=== PATIENT | male | born 1945 | race Caucasian/White ===

== ENCOUNTER 2019-08-05 18:48 | Emergency (ER) | payer MEDICARE, SELFPAY ==
--- NOTE | ~2019-08-05 | CT_ITS ---
EXAMINATION: CT abdomen pelvis w con INDICATION: Generalized abdominal pain TECHNIQUE: Computed tomographic images of the abdomen and pelvis were obtained after the administrati on of 100 cc of Omnipaque 350 intravenous contrast. The dose-length product (DLP) was 508.10 mGy-cm. Automated exposure control and iterative reconstruction technique were employed. COMPARISON: 01/01/2019 FINDINGS: There is chronic interstitial lung disease of the visualized lung bases and a pattern of us ual interstitial pneumonia. Small pleural effusions are present, right greater than left. There is a left ninth rib fracture with nonunion. The heart size is normal. The liver, spleen, pancreas, gallbla dder, and adrenal glands are normal. There is a 2 mm nonobstructing stone of the right kidney lower p ole. A 4 mm nonobstructing stone is present in the left kidney lower pole. There is calcified atheros clerosis of the aorta and many of the other arteries. A retroaortic left renal vein is noted. No path ologically enlarged abdominal or pelvic lymph nodes are identified. There is no free intraperitoneal gas or evidence of bowel obstruction. A moderate volume of colonic stool is present. There is chronic soft tissue attenuation near the right inguinal canal, likely related to prior hernia repair. Compre ssion fractures of the L3 and L4 vertebral bodies are new since the comparison examination. IMPRESSION: 1. Constipation. 2. Chronic interstitial lung disease of the visualized lung bases in a pattern of usual interstitial pneumonia. 3. Bilateral nonobstructing nephrolithiasis. 4. Compression fractures of the L3 and L4 vertebral bodies, new since the comparison examination. Reviewed, dictated and finalized at location A. IMPRESSION: 1. Constipation. 2. Chronic interstitial lung disease of the visualized lung bases in a pattern of usual interstitial pneumonia. 3. Bilateral nonobstructing nephrolithiasis. 4. Compression fractures of the L3 and L4 vertebral bodies, new since the hillary rison examination.
[2019-08-05 18:46] VITALS: BP 136/79; PULSE 77; RESP 14; TEMP 37.1; O2SAT 94
[2019-08-05 19:14] LABS: Basophils Absolute Auto 0.1 K/mm3 (0.0-0.1); Eosinophils Absolute Auto 0.2 K/mm3 (0-0.3); Eosinophils Percent Auto 1.9 % (0-4.4); Hematocrit 32.7 % (42.0-52.0); Hemoglobin 10.5 g/dL (14.0-18.0); Immature Granulocyte Percent A 1.1 % (0-0.5); Lymphocytes Absolute Auto 0.67 K/mm3 (0.9-3.2); Lymphocytes Percent Auto 7.2 % (18.3-44.2); Mean Corpuscular HGB Conc 32.1 g/dl (32-36); Mean Corpuscular Hemoglobin 30.8 pg (26-34); Mean Corpuscular Volume 95.9 fl (80-100); Monocytes Absolute Auto 0.8 K/mm3 (0.1-0.6); Monocytes Percent Auto 8.3 % (2.6-8.5); Neutrophils Absolute Auto 7.5 K/mm3 (1.3-6.7); Neutrophils Percent Auto 80.5 % (45.5-73.1); Platelet Count Result 191 k/mm3 (150-375); Red Blood Count 3.41 M/mm3 (4.6-6.20); White Blood Count 9.4 K/mm3 (4.5-10.0)
--- NOTE | 2019-08-05 19:19 | ED.ABDPAIN ---
HPI - Abdominal Pain General Chief Complaint: Abdominal Pain Stated Complaint: abd pain Time Seen by Provider: 08/05/19 19:02 Source: RN notes reviewed History of Present Illness HPI narrative: Patient presents emergency department from [facility] via EMS for abdominal pain. Patient was complaining of right lower quadrant maritza pain prior to arrival to the emergency department. States the pain began approximately 30 minutes ago. The patient arrived in the emergency department he had a large bowel movement states the pain is currently resolved. Denies any fevers or chills chest pain or shortness of breath. States he is chronically on 2 to 3 L nasal cannula secondary to COPD. The patient does note that he had some earlier nausea that is now resolved Related Data Home Medications Medication Instructions Recorded Confirmed Symbicort 2 puff INHALATION Q12H PRN 01/01/19 01/25/19 Tumeric 500 mg PO DAILY 01/01/19 01/25/19 ascorbic acid (vitamin C) 2 g PO DAILY 01/01/19 01/25/19 aspirin 81 mg PO DAILY 01/01/19 01/25/19 bupropion HCl 150 mg PO QAM 01/01/19 01/25/19 cholecalciferol (vitamin D3) 1,000 unit PO DAILY 01/01/19 01/25/19 [Vitamin D3] clonazepam 0.5 mg PO DAILY PRN 01/01/19 01/25/19 cyanocobalamin (vitamin B-12) 1,000 mcg PO DAILY 01/01/19 01/25/19 [Vitamin B-12] escitalopram oxalate 20 mg PO DAILY 01/01/19 01/25/19 ferrous sulfate 650 mg PO DAILY 01/01/19 01/25/19 gabapentin 300 mg PO TID 01/01/19 01/25/19 ipratropium-albuterol 3 ml INHALATION Q12H PRN 01/01/19 01/25/19 megestrol 1,600 mg PO DAILY 01/01/19 01/25/19 melatonin 5 mg PO HS 01/01/19 01/25/19 pantoprazole 40 mg PO QAM 01/01/19 01/25/19 potassium gluconate 595 mg PO DAILY 01/01/19 01/25/19 pravastatin 80 mg PO HS 01/01/19 01/25/19 prochlorperazine maleate 10 mg PO Q6H PRN 01/01/19 01/25/19 Florajen 460 mg PO DAILY 01/25/19 01/25/19 Allergies Allergy/AdvReac Type Severity Reaction Status Date / Time Penicillins Allergy Unknown Rash Verified 01/24/19 23:49 Sulfa (Sulfonamide Allergy Unknown Rash Verified 01/24/19 23:49 Antibiotics) Review of Systems Review of Systems: Narrative: Gen.: Denies fevers or chills ENT: Denies congestion Respiratory: Denies shortness of breath or cough CV: Denies chest pain or palpitations GI: See HPI denies burning, urgency, frequency or hematuria Musculoskeletal: Denies back pain or muscle pain Neuro: Denies numbness, tingling, weakness or focal weakness Skin: Denies rash Except as documented, all other systems reviewed and negative [facility] Past Medical History Medical History Anemia Anxiety CAD (coronary artery disease) Chronic kidney disease Chronic respiratory failure COPD (chronic obstructive pulmonary disease) Depression with anxiety HTN (hypertension) Hyperlipidemia Inguinal hernia right side Lung cancer small cell lung cancer On home oxygen therapy 2L NC Peripheral artery disease Peripheral neuropathy Pneumonia Port-A-Cath in place Restless leg syndrome Sepsis Thoracic compression fracture Type II diabetes mellitus Ureteral stone UTI (urinary tract infection) Vitamin D deficiency Surgical History Surgical History H/O angioplasty H/O inguinal hernia repair Hx of tonsillectomy Social History Social History Social History: Patient resides at [facility] in [facility] Care unit as an Assisted Living resident. He does not have a PCP at the moment. He wishes to be listed as a full code. He lists his stepson/friend Vamshi Pinto his POA Years smoked: 51 Smoking status: Light tobacco smoker Tobacco type: cigarettes Second hand tobacco smoke exposure: No Smoking end date: 12/09/18 Additional smoking assessment comments: Pt notes that he smokes sometimes if he can get away with it. He has not Alcohol intake: nev
[2019-08-05 19:26] LABS: Alanine Aminotransferase 12 U/L (4-50); Alkaline Phosphatase 53 U/L (38-126); Aspartate Amino Transferase 20 U/L (17-59); Bilirubin,Total 0.4 mg/dL (0.2-1.3); Blood Urea Nitrogen 31 mg/dL (9-20); Calcium 8.7 mg/dL (8.4-10.2); Carbon Dioxide 21 mmol/L (22-30); Chloride 109 mmol/L (98-107); Estimated CRCL calculation 38 ml/min; Estimated Glomerular Filt Rate 50; Glucose 131 mg/dL (75-110); Lipase 57 U/L (23-300); Potassium 3.8 mmol/L (3.4-5.0); Sodium 140 mmol/L (137-145)
[2019-08-05 19:30] LABS: Estimated CRCL calculation 38 ml/min; Estimated Glomerular Filt Rate 50
[2019-08-05 21:09] VITALS: BP 128/69; PULSE 71; RESP 16; O2SAT 97
[2019-08-05 21:09] LABS: Add Urine Microscopic? YES; Appearance Urine Clear (Clear); Bacteria Urine Trace /hpf; Bilirubin Urine Negative (Negative); Blood Urine Negative (Negative); Budding Yeast Urine Present /hpf; Color Urine Yellow (Yellow); Glucose Urine UA Negative (Negative); Ketones Urine Negative (Negative); Leukocyte Esterase Ur 1+ LEU/UL (Negative); Mucus Urine Few /lpf; Nitrate Urine Negative (Negative); Protein Urine 1+ mg/dL (Negative); RBC Urine 21-50 /hpf (0-2); Specific Grav Ur 1.055 (1.001-1.035); Squamous Epithelial Cell Urine Occasional /hpf (Few)
[2019-08-05] MEDS: CIPROFLOXACIN 500 MG TAB PO (22:12)
[2019-08-06 00:24] VITALS: BP 124/65; PULSE 62; RESP 16; TEMP 36.3; O2SAT 96
== END 2019-08-06 00:25 ==
PROVIDERS: Emergency Provider Emergency Medicine
DX: N39.0 Urinary tract infection, site not specified (principal); D64.9 Anemia, unspecified; I25.10 Atherosclerotic heart disease of native coronary artery without angina pectoris; J96.10 Chronic respiratory failure, unspecified whether with hypoxia or hypercapnia; J44.9 Chronic obstructive pulmonary disease, unspecified; F41.8 Other specified anxiety disorders; E11.22 Type 2 diabetes mellitus with diabetic chronic kidney disease; I12.9 Hypertensive chronic kidney disease with stage 1 through stage 4 chronic kidney disease, or unspecified chronic kidney disease; N18.9 Chronic kidney disease, unspecified; Z85.118 Personal history of other malignant neoplasm of bronchus and lung; Z99.81 Dependence on supplemental oxygen; E11.51 Type 2 diabetes mellitus with diabetic peripheral angiopathy without gangrene; G25.81 Restless legs syndrome; E55.9 Vitamin D deficiency, unspecified; Z98.61 Coronary angioplasty status; Z87.891 Personal history of nicotine dependence; K59.00 Constipation, unspecified; J84.9 Interstitial pulmonary disease, unspecified; N20.0 Calculus of kidney; M48.56XA Collapsed vertebra, not elsewhere classified, lumbar region, initial encounter for fracture; Z79.82 Long term (current) use of aspirin
CPT/HCPCS: 36415; 51701; 74177; 80053; 81001; 83690; 85025; 87086; 99284; A9270; Q9967

== ENCOUNTER 2019-11-22 19:38 | Inpatient (IN) | payer MEDICARE, SELFPAY ==
--- NOTE | ~2019-11-22 | XR_ITS ---
EXAMINATION: XR chest 1V portable EXAM DATE: 11/22/2019 21:07 INDICATION: Hypoxia. COPD, hypertension. TECHNIQUE: Frontal and lateral projections of the chest obtained and reviewed. Comparison is made to prior examination from 01/03/2019. FINDINGS: There is a right-sided portacatheter. Again there are scattered mid and lower lung zone opa cities, not significantly changed compared to prior study and therefore most likely chronic interstit ial lung disease. No confluent consolidation, pneumothorax or pleural effusion suspected. Cardiomedia stinal silhouette is normal. There is aortic arteriosclerosis. The bones are osteopenic. There are b chuy degenerative changes. IMPRESSION: Scattered chronic lung opacities most likely interstitial lung disease. No definite super imposed acute process. Reviewed, dictated and finalized at location A. IMPRESSION: Scattered chronic lung opacities most likely interstitial lung dise ase. No definite superimposed acute process.
--- NOTE | ~2019-11-22 | CT_ITS ---
EXAMINATION: CT brain wo con EXAM DATE: 11/22/2019 21:00 INDICATION: Altered mental status. Poor intake, decreased urine output. TECHNIQUE: Spiral CT of the head was performed without contrast. Axial, coronal and sagittal images were reviewed. The dose-length product (DLP) for this examination was 756.67 mGy-cm. The exposure w as tailored according to patient size, and iterative reconstruction (ASIR) was used as additional dos e reduction technique. Comparison is made to prior examination from 01/25/2019. FINDINGS: There is no acute intraparenchymal hemorrhage. No evidence of intraparenchymal brain mass lesion. No evidence of acute infarction. Please note that initial head CT has limited sensitivity f or small or acute infarctions. 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 There is ex tensive periventricular and subcortical hypodensity, nonspecific but probably related to small vessel ischemic disease. There is severe prominence of the sulci and ventricles related to cerebral atrop hy. There is intracranial carotid arteriosclerosis. There are no extra-axial collections. There i s no mass effect or midline shift. The orbits are unremarkable. Soft tissue is unremarkable. The v isualized sinuses and mastoid air cells are well aerated. IMPRESSION: 1. No acute intracranial findings. 2. Chronic age related findings. 3. 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 Reviewed, dictated and finalized at location A.
[2019-11-22 19:44] VITALS: BP 143/67; PULSE 87; RESP 23; TEMP 36.8; O2SAT 100
--- NOTE | 2019-11-22 19:53 | PC.NURSE ---
EKG done at 194, shown to VALERIE at 1950
--- NOTE | 2019-11-22 19:54 | ECG_ITS ---
Measurements Intervals [place] Rate: 85 P: UT: 0 QRS: 31 QRSD: 98 T: 52 QT: 394 QTc: 470 Interpretive Statements SINUS OR ECTOPIC ATRIAL RHYTHM BORDERLINE ST-T WAVE ABNORMALITY- ANTERIOR LEADS BASELINE ARTIFACT-I, II, III, AVR, AVL, AVF, V1-V6 BORDERLINE ECG Electronically Signed On 11-23-2019 6:59:36 CDT by Mian Abdul D.O.
--- NOTE | 2019-11-22 19:56 | ED.AMS ---
HPI - Altered Mental Status General Chief Complaint: Altered Mental Status Stated Complaint: ams, resp distress Time Seen by Provider: 11/22/19 19:49 History of Present Illness HPI narrative: 74 yo male w/ h/o COPD, CKD brought in from [facility] by EMS for poor PO intake and hypoxia. He has reportedly been lethargic and not eating or drinking for the past 2 days. Additionally requiring Increase from baseline supplemental O2 requirement. He denies any pain. History limited by medical condition. Related Data Home Medications Medication Instructions Recorded Confirmed Symbicort 2 puff INHALATION Q12H PRN 01/01/19 01/25/19 Tumeric 500 mg PO DAILY 01/01/19 01/25/19 ascorbic acid (vitamin C) 2 g PO DAILY 01/01/19 01/25/19 aspirin 81 mg PO DAILY 01/01/19 01/25/19 bupropion HCl 150 mg PO QAM 01/01/19 01/25/19 cholecalciferol (vitamin D3) 1,000 unit PO DAILY 01/01/19 01/25/19 [Vitamin D3] clonazepam 0.5 mg PO DAILY PRN 01/01/19 01/25/19 cyanocobalamin (vitamin B-12) 1,000 mcg PO DAILY 01/01/19 01/25/19 [Vitamin B-12] escitalopram oxalate 20 mg PO DAILY 01/01/19 01/25/19 ferrous sulfate 650 mg PO DAILY 01/01/19 01/25/19 gabapentin 300 mg PO TID 01/01/19 01/25/19 ipratropium-albuterol 3 ml INHALATION Q12H PRN 01/01/19 01/25/19 megestrol 1,600 mg PO DAILY 01/01/19 01/25/19 melatonin 5 mg PO HS 01/01/19 01/25/19 pantoprazole 40 mg PO QAM 01/01/19 01/25/19 potassium gluconate 595 mg PO DAILY 01/01/19 01/25/19 pravastatin 80 mg PO HS 01/01/19 01/25/19 prochlorperazine maleate 10 mg PO Q6H PRN 01/01/19 01/25/19 Florajen 460 mg PO DAILY 01/25/19 01/25/19 Allergies Allergy/AdvReac Type Severity Reaction Status Date / Time Penicillins Allergy Unknown Rash Verified 01/24/19 23:49 Sulfa (Sulfonamide Allergy Unknown Rash Verified 01/24/19 23:49 Antibiotics) Review of Systems Review of Systems: ROS unobtainable: Yes unobtainable due to medical condition [facility] Past Medical History Medical History (Updated 11/22/19 @ 22:16 by Pa Molina MD) Anemia Anxiety CAD (coronary artery disease) Chronic kidney disease Chronic respiratory failure COPD (chronic obstructive pulmonary disease) Depression with anxiety HTN (hypertension) Hyperlipidemia Inguinal hernia right side Lung cancer small cell lung cancer On home oxygen therapy 2L NC Peripheral artery disease Peripheral neuropathy Pneumonia Port-A-Cath in place Restless leg syndrome Sepsis Thoracic compression fracture Type II diabetes mellitus Ureteral stone UTI (urinary tract infection) Vitamin D deficiency Surgical History Surgical History H/O angioplasty H/O inguinal hernia repair Hx of tonsillectomy Family History Family History Sibling Family history of elevated blood lipids Family history of diabetes mellitus in first degree relative Diabetes mellitus Family history of malignant neoplasm Father Family history of coronary artery disease Mother Family history of coronary artery disease Family history of malignant neoplasm Other Acute myocardial infarction Family history of chronic obstructive pulmonary disease Social History Social History Social History: Patient resides at [facility] in [facility] Care unit as an Assisted Living resident. He does not have a PCP at the moment. He wishes to be listed as a full code. He lists his stepson/friend Vamshi Pinto his POA Years smoked: 51 Smoking status: Light tobacco smoker Tobacco type: cigarettes Second hand tobacco smoke exposure: No Smoking end date: 12/09/18 Additional smoking assessment comments: Pt notes that he smokes sometimes if he can get away with it. He has not Alcohol intake: never Substance use: never Substance use type: does not use Gender identity (if verbalized by the pat
[2019-11-22] MEDS: SODIUM CHLORIDE 0.9% IV 1,000 ML 999 ML IV CONT (20:35)
[2019-11-22 20:52] LABS: Basophils Absolute Auto 0.1 K/mm3 (0.0-0.1); Basophils Percent Auto 0.4 % (0.2-1.2); Eosinophils Percent Auto 0.2 % (0-4.4); Hematocrit 27.7 % (42.0-52.0); Hemoglobin 8.7 g/dL (14.0-18.0); Immature Granulocyte Absolute 0.06 K/mm3 (0.00-0.031); Immature Granulocyte Percent A 0.5 % (0-0.5); Lymphocytes Absolute Auto 0.37 K/mm3 (0.9-3.2); Lymphocytes Percent Auto 3.1 % (18.3-44.2); Mean Corpuscular HGB Conc 31.4 g/dl (32-36); Mean Corpuscular Hemoglobin 27.6 pg (26-34); Mean Corpuscular Volume 87.9 fl (80-100); Mean Platelet Volume 10.3 fl (7.4-10.4); Monocytes Percent Auto 7.9 % (2.6-8.5); Neutrophils Absolute Auto 10.5 K/mm3 (1.3-6.7); Neutrophils Percent Auto 87.9 % (45.5-73.1); Platelet Count Result 286 k/mm3 (150-375); Red Blood Count 3.15 M/mm3 (4.6-6.20); Red Cell Distribution Width 15.8 % (11.5-14.5)
[2019-11-22 21:01] LABS: Ovalocytes 1+ (NORMAL); Platelet Estimate Adequate (Adequate)
[2019-11-22 21:02] LABS: INR 1.2; Prothrombin Time 14.6 Seconds (11.1-14.7)
[2019-11-22 21:03] LABS: Partial Thromboplastin Time 36.1 SECONDS (22.3-36.8)
[2019-11-22 21:04] LABS: Alanine Aminotransferase 8 U/L (4-50); Albumin Level 3.6 g/dL (3.5-5.1); Alkaline Phosphatase 75 U/L (38-126); Anion Gap 10 mmol/L (8-16); Aspartate Amino Transferase 17 U/L (17-59); Bilirubin,Total 0.7 mg/dL (0.2-1.3); Blood Urea Nitrogen 35 mg/dL (9-20); Calcium 9.1 mg/dL (8.4-10.2); Carbon Dioxide 27 mmol/L (22-30); Chloride 102 mmol/L (98-107); Estimated CRCL calculation 31 ml/min; Estimated Glomerular Filt Rate 43; Glucose 128 mg/dL (75-110); Potassium 3.4 mmol/L (3.4-5.0); Sodium 139 mmol/L (137-145)
[2019-11-22 21:30] VITALS: BP 125/64; PULSE 81; RESP 18; O2SAT 98
[2019-11-22 21:51] LABS: Add Urine Microscopic? YES; Amorphous Sediment Urine Few; Appearance Urine Turbid (Clear); Bacteria Urine 4+ /hpf; Bilirubin Urine Negative (Negative); Blood Urine 2+ (Negative); Color Urine Amber (Yellow); Glucose Urine UA Negative (Negative); Ketones Urine Negative (Negative); Leukocyte Esterase Ur 3+ LEU/UL (Negative); Mucus Urine Moderate /lpf; Nitrate Urine Positive (Negative); Protein Urine 2+ mg/dL (Negative); Specific Grav Ur 1.017 (1.001-1.035); Urobilinogen Urine Negative mg/dL (<2.0); WBC Clumps Urine Present /HPF; WBC Urine >75 /hpf
[2019-11-22 22:00] VITALS: BP 132/66; PULSE 83; RESP 21; O2SAT 100
[2019-11-22 22:30] VITALS: BP 126/86; PULSE 81; RESP 19; O2SAT 99
[2019-11-22 23:11] VITALS: BP 105/76; PULSE 79; RESP 18; O2SAT 95
[2019-11-22 23:30] VITALS: BP 120/58; PULSE 83; RESP 20; TEMP 37.2; O2SAT 99; BMI 17.4
--- NOTE | 2019-11-22 23:30 | ADMGEN ---
This patient, Carlos A Poole, was admitted to [facility] Surg Room 331-01. Patient/family oriented to hospital policies and general routines including ID bracelet, bed and alarms, visiting hours, pain management, procedures, bathroom and other care routines, personal items, smoking policy, room service/diet, and visiting hours. Valuables list has been completed. Information on how to activate the Rapid Response Team has been discussed. Patient/Family are encouraged to report perceived risks to care and to ask questions if they do not understand what they are told or what they should do.
[2019-11-22] MEDS: LACTATED RINGERS 1,000 ML 125 ML IV CONT (23:43)
[2019-11-23] VITALS (8 sets, daily range): BP systolic 118–144; BP diastolic 55–79; PULSE 73–97; RESP 16–20; TEMP 36.6–36.8; O2SAT 90–100; BMI 17.4
--- NOTE | 2019-11-23 00:19 | PM.IMHP ---
H&P: HPI History of Present Illness Date/Time: 11/23/19 00:19 Chief complaint: Acute on chronic respiratory failure, UTI, Narrative: This is a 74 year old Diabetic male with known COPD, chronic respiratory failure on 2L of chronic oxygen, CKD among other comorbidities who presented from the long term this evening secondary to decreased PO intake and hypoxia. Apparently the patient has not been eating for the past 2 days according to long term staff and today was requiring more oxygen. The patient himself appears confused and not answering questions appropriately at this time. No significant history is obtainable from him. Routine labs that were obtained demonstrated a drop in his H/H from baseline, acute dehydration, acute renal failure, and a grossly abnormal urinalysis. The patient was treated with IV fluids and antibiotics in the ER tonight. He was swabbed for COVID-19 and placed on isolation. Review of Systems Review of Systems: All systems reviewed & are unremarkable except as noted in HPI and below PMFSH Past Medical History Medical History Anemia Anxiety CAD (coronary artery disease) Chronic kidney disease Chronic respiratory failure COPD (chronic obstructive pulmonary disease) Depression with anxiety HTN (hypertension) Hyperlipidemia Inguinal hernia right side Lung cancer small cell lung cancer On home oxygen therapy 2L NC Peripheral artery disease Peripheral neuropathy Pneumonia Port-A-Cath in place Restless leg syndrome Sepsis Thoracic compression fracture Type II diabetes mellitus Ureteral stone UTI (urinary tract infection) Vitamin D deficiency Surgical History Surgical History H/O angioplasty H/O inguinal hernia repair Hx of tonsillectomy Family History Family History Sibling Family history of elevated blood lipids Family history of diabetes mellitus in first degree relative Diabetes mellitus Family history of malignant neoplasm Father Family history of coronary artery disease Mother Family history of coronary artery disease Family history of malignant neoplasm Other Acute myocardial infarction Family history of chronic obstructive pulmonary disease Social History Social History Social History: Patient resides at [facility] in [facility] as an Assisted Living resident. He does not have a PCP at the moment. He wishes to be listed as a full code. He lists his stepson/friend Vamshi Pinto his POA Smoking packs per day: 0.6 Smoking cigarettes per day: 12.0 Years smoked: 51 Smoking pack-years: 30.60 Smoking status: Current every day smoker Tobacco type: cigarettes Second hand tobacco smoke exposure: No Smoking end date: 12/09/18 Additional smoking assessment comments: Pt notes that he smokes sometimes if he can get away with it. He has not Alcohol intake: never Substance use: never Substance use type: does not use Gender identity (if verbalized by the patient): Male Sexual Orientation (if Verbalized by the Patient): Straight or Heterosexual Spiritual care concerns: No Agree to blood products: Yes Meds Home Medications and Allergies Home Medications Medication Instructions Recorded Confirmed Type Tumeric 500 mg PO DAILY 01/01/19 11/23/19 History aspirin 81 mg PO DAILY 01/01/19 11/23/19 History budesonide-formoterol [Symbicort] 2 puff INHALATION Q12H PRN 01/01/19 11/23/19 History bupropion HCl 150 mg PO QAM 01/01/19 11/23/19 History cholecalciferol (vitamin D3) 1,000 unit PO DAILY 01/01/19 11/23/19 History [Vitamin D3] clonazepam 0.5 mg PO DAILY PRN 01/01/19 11/23/19 History cyanocobalamin (vitamin B-12) 1,000 mcg PO DAILY 01/01/19 11/23/19 History [Vitamin B-12] escitalopram oxalate 10
[2019-11-23 02:27] LABS: Alveolar/Arterial O2 Gradient 111.3 mmHg; Base Excess ABG -0.6 mEq/l (+/-2.0); Fractional Inspired Oxygen 32 %; HCO3 ABG 23.4 mEq/l (22.0-26.0); Oxygen Content ABG 11.6 %vol (16.0-22.0); Oxygen Saturation ABG 95.6 % (95.0-100.0); Oxyhemoglobin 93.1 % THb (90.0-100.0); PCO2 ABG 35.5 mmHg (35.0-45.0); PO2 ABG 75.3 mmHg (80.0-100.0); PO2 FiO2 Ratio Arterial Blood 2.35 %; Total Hemoglobin 8.8 g/dL (12.0-18.0); pH ABG 7.436 (7.350-7.450)
[2019-11-23 02:28] LABS: Device NASAL CANNULA; Modified Allen's Test Pass; Site Drawn RIGHT RADIAL
[2019-11-23 02:58] LABS: Basophils Percent Auto 0.4 % (0.2-1.2); Eosinophils Absolute Auto 0.1 K/mm3 (0-0.3); Eosinophils Percent Auto 0.5 % (0-4.4); Hematocrit 25.3 % (42.0-52.0); Immature Granulocyte Absolute 0.03 K/mm3 (0.00-0.031); Immature Granulocyte Percent A 0.3 % (0-0.5); Lymphocytes Absolute Auto 0.45 K/mm3 (0.9-3.2); Lymphocytes Percent Auto 4.6 % (18.3-44.2); Mean Corpuscular HGB Conc 31.6 g/dl (32-36); Mean Corpuscular Volume 88.5 fl (80-100); Mean Platelet Volume 10.5 fl (7.4-10.4); Monocytes Absolute Auto 0.8 K/mm3 (0.1-0.6); Monocytes Percent Auto 8.5 % (2.6-8.5); Neutrophils Absolute Auto 8.3 K/mm3 (1.3-6.7); Neutrophils Percent Auto 85.7 % (45.5-73.1); Platelet Count Result 256 k/mm3 (150-375); Red Blood Count 2.86 M/mm3 (4.6-6.20); Red Cell Distribution Width 15.5 % (11.5-14.5); White Blood Count 9.7 K/mm3 (4.5-10.0)
[2019-11-23 03:17] LABS: Anion Gap 8 mmol/L (8-16); Blood Urea Nitrogen 32 mg/dL (9-20); Calcium 8.6 mg/dL (8.4-10.2); Carbon Dioxide 26 mmol/L (22-30); Chloride 106 mmol/L (98-107); Estimated CRCL calculation 32 ml/min; Estimated Glomerular Filt Rate 46; Glucose 109 mg/dL (75-110); Magnesium 2.2 mg/dL (1.6-2.3); Potassium 3.2 mmol/L (3.4-5.0); Sodium 140 mmol/L (137-145)
[2019-11-23 03:53] LABS: Influenza Control Positive
[2019-11-23] MEDS: POTASSIUM CHLORIDE 20 MEQ TABLET PO (08:41)
[2019-11-23] MEDS: MIDODRINE HCL 2.5 MG TABLET 5 MG PO ×3 (08:42→16:57)
[2019-11-23] MEDS: PANTOPRAZOLE SOD SESQUIHYDRATE 20 MG TAB PO (08:42)
[2019-11-23] MEDS: FERROUS SULFATE 324 MG TABLET PO (08:42)
[2019-11-23] MEDS: FLUDROCORTISONE ACETATE 0.1 MG TABLET PO (08:42)
[2019-11-23] MEDS: polyethylene glycoL 3350 17 GM POWD.PACK PO (08:43)
[2019-11-23] MEDS: LACTATED RINGERS 1,000 ML 125 ML IV CONT ×2 (08:45→16:56)
[2019-11-23 09:06] LABS: Glucose Point of Care 102 (65-105)
[2019-11-23 09:23] LABS: Hemoglobin 7.9 g/dL (14.0-18.0)
--- NOTE | 2019-11-23 12:26 | PM.IMPN ---
Progress Note: A&P Assessment and Plan (1) Acute and chronic respiratory failure ([id number]): Qualifiers: Respiratory failure complication: hypoxia Qualified Code(s): J96.21 - Acute and chronic respiratory failure with hypoxia Code(s): J96.20 - Acute and chronic respiratory failure, unspecified whether with hypoxia or hypercapnia Status: Acute Assessment and Plan: CXR shows scattered lung opacities likely due to interstitial lung disease with obvious superimposed acute process.Patient is on chronic 2 L O2. He was noted to be hypoxic at snf. He is currently requiring 3 L per nasal cannula and maintaining adequate oxygen saturations. No documented hypoxic episodes since arrival. Influenza negative. Continue supplemental O2 as needed with goal saturation 90% or above. Wean to goal. Continue Symbicort Covid test pending. Legionella and pneumococcal antigens pending. Will attempt collection of sputum culture but patient does not appear to have productive cough. Monitor respiratory status closely (2) Acute on chronic renal failure: Qualifiers: Acute renal failure type: unspecified Chronic kidney disease stage: stage 3 (moderate) Chronic kidney disease stage 3 subtype: unspecified whether 3a or 3b Qualified Code(s): N17.9 - Acute kidney failure, unspecified; N18.30 - Chronic kidney disease, stage 3 unspecified Code(s): N17.9 - Acute kidney failure, unspecified; N18.9 - Chronic kidney disease, unspecified Status: Acute Assessment and Plan: Creatinine 1.6 at presentation. Likely secondary to dehydration from poor PO intake of fluids. MD staff noted the patient had not been eating or drinking well for several days. Baseline creatinine appears to be 1.3-1.4. Creatinine improved today to 1.5. Continue gentle IV fluids Renally adjust medications and avoid nephrotoxic agents. Monitor renal function closely. (3) Dehydration: Code(s): E86.0 - Dehydration Status: Acute Assessment and Plan: Secondary to poor p.o. intake as above. Patient still with poor p.o. intake. Continue gentle IV fluid rehydration. Monitor I&O closely. (4) UTI (urinary tract infection): Qualifiers: Hematuria presence: without hematuria Urinary tract infection type: site unspecified Qualified Code(s): N39.0 - Urinary tract infection, site not specified Code(s): N39.0 - Urinary tract infection, site not specified Status: Acute Assessment and Plan: Urinalysis grossly abnormal. Patient is afebrile. Very mild leukocytosis that has resolved. He had a urine culture positive for Proteus 1 year ago which was sensitive to Rocephin. Patient is incontinent of urine and not able to indicate whether he is having urinary symptoms. Continue IV Rocephin, initiated on 11/22/2019. Await results of urine culture and tailor antibiotics appropriately. (5) Acute encephalopathy: Code(s): G93.40 - Encephalopathy, unspecified Status: Acute Assessment and Plan: Patient was noted to be confused upon presentation and was not answering questions appropriately. Possibly metabolic secondary to dehydration/UTI. 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 TSH wnl. B12 and folate. I spoke with MD staff at [place] who states that at baseline he is able to follow commands, feed himself, and is generally non-verbal. At this time, he seems to be consistent with baseline. Continue treatment as above for UTI/dehydration. Monitor mental status closely. (6) Suspected 2019 novel coronavirus infection: Code(s): Z20.828 - Contact with and (suspected) exposure to other viral communicable diseases Status: Acute Assessment and Plan: Patient was noted to be hypoxic a snf as noted above and has increased O2 requirements , therefore was swabbed for COVID-19..
[2019-11-23 13:52] LABS: SARS-CoV-2 RNA PCR Negative
[2019-11-23 15:29] LABS: Hematocrit 25.4 % (42.0-52.0)
[2019-11-23 17:49] LABS: Glucose Point of Care 137 (65-105)
[2019-11-23 17:49] LABS: Glucose Point of Care 89 (65-105)
[2019-11-23] MEDS: PRAVASTATIN SODIUM 20 MG TABLET 80 MG PO (20:03)
[2019-11-23 20:41] LABS: Hemoglobin 7.6 g/dL (14.0-18.0)
[2019-11-23 21:21] LABS: Glucose Point of Care 145 (65-105)
[2019-11-24] MEDS: LACTATED RINGERS 1,000 ML 125 ML IV CONT (01:09)
[2019-11-24 06:00] VITALS: BP 122/58; PULSE 72; RESP 20; TEMP 36.7; O2SAT 96
[2019-11-24 06:21] LABS: Hematocrit 24.6 % (42.0-52.0); Hemoglobin 7.6 g/dL (14.0-18.0); Mean Corpuscular HGB Conc 30.9 g/dl (32-36); Mean Corpuscular Hemoglobin 27.5 pg (26-34); Mean Corpuscular Volume 89.1 fl (80-100); Mean Platelet Volume 10.2 fl (7.4-10.4); Platelet Count Result 287 k/mm3 (150-375); Red Blood Count 2.76 M/mm3 (4.6-6.20); Red Cell Distribution Width 15.4 % (11.5-14.5)
[2019-11-24 06:35] LABS: Hemoglobin A1C 5.2 % (<5.7)
[2019-11-24 06:52] LABS: Anion Gap 7 mmol/L (8-16); Blood Urea Nitrogen 21 mg/dL (9-20); Calcium 8.5 mg/dL (8.4-10.2); Carbon Dioxide 27 mmol/L (22-30); Chloride 106 mmol/L (98-107); Estimated CRCL calculation 43 ml/min; Estimated Glomerular Filt Rate > 60; Glucose 111 mg/dL (75-110); Potassium 3.3 mmol/L (3.4-5.0); Sodium 140 mmol/L (137-145)
[2019-11-24 08:05] VITALS: PULSE 62; RESP 16; O2SAT 94
[2019-11-24 08:39] LABS: Glucose Point of Care 107 (65-105)
[2019-11-24] MEDS: FLUDROCORTISONE ACETATE 0.1 MG TABLET PO (08:42)
[2019-11-24] MEDS: PANTOPRAZOLE SOD SESQUIHYDRATE 20 MG TAB PO (08:42)
[2019-11-24] MEDS: polyethylene glycoL 3350 17 GM POWD.PACK PO (08:42)
[2019-11-24] MEDS: FERROUS SULFATE 324 MG TABLET PO (08:42)
[2019-11-24] MEDS: MIDODRINE HCL 2.5 MG TABLET 5 MG PO ×3 (08:42→17:10)
[2019-11-24] MEDS: LACTATED RINGERS 1,000 ML 75 ML IV CONT (10:25)
[2019-11-24 11:51] LABS: IFOB Positive Control Positive; Immunochemical Fecal Occult Bl Positive (N)
[2019-11-24] MEDS: POTASSIUM CHLORIDE 20 MEQ TABLET PO (12:54)
[2019-11-24 13:03] LABS: Glucose Point of Care 106 (65-105)
--- NOTE | 2019-11-24 13:19 | PM.IMPN ---
Progress Note: A&P Assessment and Plan (1) Acute and chronic respiratory failure ([id number]): Qualifiers: Respiratory failure complication: hypoxia Qualified Code(s): J96.21 - Acute and chronic respiratory failure with hypoxia Code(s): J96.20 - Acute and chronic respiratory failure, unspecified whether with hypoxia or hypercapnia Status: Acute Assessment and Plan: CXR shows scattered lung opacities likely due to interstitial lung disease with no obvious superimposed acute process. Patient is on chronic 2 L O2. He was noted to be hypoxic at retirement. He is currently requiring 3 L per nasal cannula and maintaining adequate oxygen saturations. No documented hypoxic episodes since arrival. Pneumonia is less likely as he has no signs or symptoms of infectious process. Continue supplemental O2 as needed with goal saturation 90% or above. Wean to goal. Continue Symbicort Legionella and pneumococcal antigens pending. Will attempt collection of sputum culture but patient does not appear to have productive cough. Monitor respiratory status closely (2) Acute on chronic renal failure: Qualifiers: Acute renal failure type: unspecified Chronic kidney disease stage: stage 3 (moderate) Chronic kidney disease stage 3 subtype: unspecified whether 3a or 3b Qualified Code(s): N17.9 - Acute kidney failure, unspecified; N18.30 - Chronic kidney disease, stage 3 unspecified Code(s): N17.9 - Acute kidney failure, unspecified; N18.9 - Chronic kidney disease, unspecified Status: Acute Assessment and Plan: Creatinine 1.6 at presentation. Likely secondary to dehydration from poor PO intake of fluids. [place] staff noted the patient had not been eating or drinking well for several days. Baseline creatinine appears to be 1.3-1.4. Creatinine improved today to 1.1. Continue gentle IV fluids as PO intake is still diminished Renally adjust medications and avoid nephrotoxic agents. Monitor renal function closely. (3) Dehydration: Code(s): E86.0 - Dehydration Status: Acute Assessment and Plan: Secondary to poor p.o. intake as above. PO intake improving but still diminished. Continue gentle IV fluid rehydration. Monitor I&O closely. (4) UTI (urinary tract infection): Qualifiers: Hematuria presence: without hematuria Urinary tract infection type: site unspecified Qualified Code(s): N39.0 - Urinary tract infection, site not specified Code(s): N39.0 - Urinary tract infection, site not specified Status: Acute Assessment and Plan: Urinalysis grossly abnormal. Patient is afebrile. Very mild leukocytosis that has resolved. Patient is incontinent of urine and not able to indicate whether he is having urinary symptoms. urine culture with >100,000 CFU E coli. Continue IV Rocephin, initiated on 11/22/2019. Await susceptibility reports and tailor antibiotics appropriately (5) Acute encephalopathy: Code(s): G93.40 - Encephalopathy, unspecified Status: Acute Assessment and Plan: Patient was noted to be confused upon presentation and was not answering questions appropriately. Possibly metabolic secondary to dehydration/UTI. 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 TSH wnl. B12 and folate. I spoke with NH staff at [facility] who states that at baseline he is able to follow commands, feed himself, and is generally non-verbal. At this time, he seems to be consistent with baseline. He was conversational today. Continue treatment as above for UTI/dehydration. Monitor mental status closely. (6) Normocytic anemia: Code(s): D64.9 - Anemia, unspecified Status: Acute Assessment and Plan: The patient has a history of previous GI bleeds and appears to have a drop in his H/H from baseline. Hemoglobin declined to 7.6 today. No obvious source of
[2019-11-24 14:00] VITALS: BP 134/71; PULSE 71; RESP 16; TEMP 36.4; O2SAT 99
[2019-11-24 17:14] LABS: Glucose Point of Care 106 (65-105)
[2019-11-24 19:22] VITALS: O2SAT 92
[2019-11-24] MEDS: PRAVASTATIN SODIUM 20 MG TABLET 80 MG PO (20:46)
[2019-11-24 22:00] VITALS: BP 140/49; PULSE 72; RESP 16; TEMP 36.3; O2SAT 99
[2019-11-24 22:26] LABS: Glucose Point of Care 92 (65-105)
[2019-11-25] MEDS: LACTATED RINGERS 1,000 ML 75 ML IV CONT (01:30)
[2019-11-25 06:00] VITALS: BP 157/83; PULSE 79; RESP 16; TEMP 36.2; O2SAT 98
[2019-11-25 06:32] LABS: Hemoglobin 8.1 g/dL (14.0-18.0); Mean Corpuscular HGB Conc 31.2 g/dl (32-36); Mean Corpuscular Hemoglobin 26.6 pg (26-34); Mean Corpuscular Volume 85.5 fl (80-100); Mean Platelet Volume 9.7 fl (7.4-10.4); Platelet Count Result 360 k/mm3 (150-375); Red Blood Count 3.04 M/mm3 (4.6-6.20); Red Cell Distribution Width 15.1 % (11.5-14.5); White Blood Count 8.2 K/mm3 (4.5-10.0)
[2019-11-25 06:49] LABS: Anion Gap 8 mmol/L (8-16); Blood Urea Nitrogen 15 mg/dL (9-20); Calcium 8.8 mg/dL (8.4-10.2); Carbon Dioxide 30 mmol/L (22-30); Chloride 103 mmol/L (98-107); Estimated CRCL calculation 47 ml/min; Estimated Glomerular Filt Rate > 60; Glucose 111 mg/dL (75-110); Potassium 3.3 mmol/L (3.4-5.0); Sodium 141 mmol/L (137-145)
[2019-11-25 08:21] VITALS: BP 136/69; PULSE 76; RESP 18; TEMP 36.4; O2SAT 100
[2019-11-25] MEDS: FLUDROCORTISONE ACETATE 0.1 MG TABLET PO (08:22)
[2019-11-25] MEDS: PANTOPRAZOLE SOD SESQUIHYDRATE 20 MG TAB PO (08:22)
[2019-11-25] MEDS: FERROUS SULFATE 324 MG TABLET PO (08:23)
[2019-11-25] MEDS: POTASSIUM CHLORIDE 20 MEQ TABLET 40 MEQ PO (08:23)
[2019-11-25] MEDS: MIDODRINE HCL 2.5 MG TABLET 5 MG PO (08:23)
[2019-11-25] MEDS: polyethylene glycoL 3350 17 GM POWD.PACK PO (08:25)
[2019-11-25 09:42] LABS: Glucose Point of Care 103 (65-105)
[2019-11-25 11:40] LABS: Glucose Point of Care 106 (65-105)
[2019-11-25 13:30] VITALS: BP 165/79; PULSE 80; RESP 16; O2SAT 95
[2019-11-25 14:00] VITALS: BP 168/87; PULSE 85; RESP 16; TEMP 36.7; O2SAT 98
--- NOTE | 2019-11-25 15:53 | PC.NURSE ---
Vamshi was called by this nurse and he was notified that this patient would be leaving to [facility] in [place] today.
--- NOTE | 2019-11-25 16:07 | PM.DS ---
DS: Admitting Diagnosis Admitting Diagnosis Admitting Diagnosis: Acute on chronic respiratory failure, UTI, DS: Discharge Diagnosis Discharge Diagnosis (1) Acute and chronic respiratory failure ([id number]): Qualifiers: Respiratory failure complication: hypoxia Qualified Code(s): J96.21 - Acute and chronic respiratory failure with hypoxia Code(s): J96.20 - Acute and chronic respiratory failure, unspecified whether with hypoxia or hypercapnia Status: Acute Assessment and Plan: CXR showed scattered lung opacities likely due to interstitial lung disease with no obvious superimposed acute process. Patient is on chronic 2 L O2. [facility]. he initially required 3 L per nasal cannula but was quickly weaned back to his typical 2 L. he did not have any documented episodes of hypoxia. Pneumonia Was considered but felt to be less likely as he had no signs or symptoms of infectious process. Urine pneumococcal antigen negative and urine Legionella pending and will be monitored. (2) Acute on chronic renal failure: Qualifiers: Acute renal failure type: unspecified Chronic kidney disease stage: stage 3 (moderate) Chronic kidney disease stage 3 subtype: unspecified whether 3a or 3b Qualified Code(s): N17.9 - Acute kidney failure, unspecified; N18.30 - Chronic kidney disease, stage 3 unspecified Code(s): N17.9 - Acute kidney failure, unspecified; N18.9 - Chronic kidney disease, unspecified Status: Acute Assessment and Plan: Creatinine 1.6 at presentation. Likely secondary to dehydration from poor PO intake of fluids. [place] staff noted the patient had not been eating or drinking well for several days. Baseline creatinine appears to be 1.3-1.4. Creatinine improved with gentle IV fluids and was 1.0 at time of discharge. (3) Dehydration: Code(s): E86.0 - Dehydration Status: Acute Assessment and Plan: Secondary to poor p.o. intake as above. He was rehydrated with IV fluids. PO intake improved. Adequate hydration should be encouraged at [place]. (4) UTI (urinary tract infection): Qualifiers: Hematuria presence: without hematuria Urinary tract infection type: site unspecified Qualified Code(s): N39.0 - Urinary tract infection, site not specified Code(s): N39.0 - Urinary tract infection, site not specified Status: Acute Assessment and Plan: Urinalysis grossly abnormal. Patient is afebrile. Very mild leukocytosis that resolved. Patient is incontinent of urine and not able to indicate whether he is having urinary symptoms. Urine culture with >100,000 CFU E coli. He was treated with IV Rocephin based on susceptibility report and will continue p.o. cefdinir to complete a 7 day course of antibiotic therapy. (5) Acute encephalopathy: Code(s): G93.40 - Encephalopathy, unspecified Status: Acute Assessment and Plan: Patient was noted to be confused upon presentation and was not answering questions appropriately. Possibly metabolic secondary to dehydration/UTI. 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 TSH wnl. B12 and folate wnl. He was treated with IV antibiotics and rehydrated with IV fluids. I spoke with [place] staff at [facility] who states that at baseline he is able to follow commands, feed himself, and is generally non-verbal. He was consistent with his baseline upon my evaluation. (6) Normocytic anemia: Code(s): D64.9 - Anemia, unspecified Status: Acute Assessment and Plan: The patient has a history of previous GI bleeds and appeared to have a drop in his H/H from baseline. vitals remained stable. There was no obvious source of blood loss noted. Hemoglobin was 8.1 and hematocrit was 26.0 at time of discharge. (7) Occult blood positive stool: Code(s): R19.5 - Other fecal abnormalities Status: Acute
[2019-11-25 17:39] VITALS: BP 154/82; PULSE 85; RESP 16; TEMP 36.3; O2SAT 98
[2019-11-25 17:45] LABS: Glucose Point of Care 115 (65-105)
--- NOTE | 2019-11-25 19:44 | PC.NURSE ---
Report given to VIVIAN Rivero @ [facility].
[2019-11-25] MEDS: PRAVASTATIN SODIUM 20 MG TABLET 80 MG PO (20:02)
[2019-11-25 21:42] LABS: Glucose Point of Care 110 (65-105)
[2019-11-26 15:36] LABS: Pneumococcal Antigen Urine Not Detected (Not Detected)
[2019-11-29 18:50] LABS: Legionella pneumophila Ag Ur Not Detected (Not Detected)
== END 2019-11-25 20:40 | DRG 189 ==
LOC: ANHED 22:16 → ANH3MEDSUR 22:57
PROVIDERS: Physician Assistant; Admitting Provider Family Medicine; Emergency Provider Emergency Medicine; PCP General Practice; Visit Provider Internal Medicine
DX: J96.20 Acute and chronic respiratory failure, unspecified whether with hypoxia or hypercapnia (principal); N39.0 Urinary tract infection, site not specified; G93.40 Encephalopathy, unspecified; N17.9 Acute kidney failure, unspecified; J44.9 Chronic obstructive pulmonary disease, unspecified; Z20.828 Contact with and (suspected) exposure to other viral communicable diseases; E87.6 Hypokalemia; F03.90 Unspecified dementia, unspecified severity, without behavioral disturbance, psychotic disturbance, mood disturbance, and anxiety; E11.22 Type 2 diabetes mellitus with diabetic chronic kidney disease; I12.9 Hypertensive chronic kidney disease with stage 1 through stage 4 chronic kidney disease, or unspecified chronic kidney disease; N18.30 Chronic kidney disease, stage 3 unspecified; E86.0 Dehydration; Z99.81 Dependence on supplemental oxygen; B96.20 Unspecified Escherichia coli [E. coli] as the cause of diseases classified elsewhere; R19.5 Other fecal abnormalities; I25.10 Atherosclerotic heart disease of native coronary artery without angina pectoris
CPT/HCPCS: 36415; 36600; 51701; 70450; 71045; 80048; 80053; 81001; 82274; 82607; 82746; 82805; 83036; 83735; 84443; 85014; 85018; 85025; 85027; 85610; 85730; 87077; 87086; 87088; 87186; 87449; 87635; 87804; 87899; 93005; 94640; 96361; 96365; 97161; 99291; A9270; C9803; G0378; J0696; J7030; J7120; U0003